=== PATIENT | male | born 1980 | race Two or more races ===

== ENCOUNTER 2018-01-26 11:51 | Emergency (ER) | payer SELFPAY ==
--- NOTE | 2018-01-26 12:38 | ER Document Report ---
ED Medical Screen (RME) - General Chief Complaint: Near Syncope Stated Complaint: DIZZINESS Time Seen by Provider: 01/26/18 12:30 Notes: RAPID MEDICAL EVALUATION DISCLOSURE I have seen this patient as part of a Rapid Medical Evaluation and, if applicable, placed any initially appropriate orders. The patient will be seen and fully evaluated, including a full history and physical exam, by a provider ( in Main ED or Fast Track) when a room becomes available. 38-year-old male here with complaints of lightheadedness ongoing for the past 6 days ever since he sold his plasma. Several hours after donating plasma, he had 2 episodes of vomiting and syncope but none since then however he has had lightheadedness daily. The vomiting has resolved however he is now having some looser than normal stools but not watery. He has been eating and drinking per usual. He has sold his plasma in the past several times however this is the first time he has had the symptoms. He believes they took off the same amount of plasma that the normally take. EXAM CTAB RRR TRAVEL OUTSIDE OF THE [place] IN LAST 30 DAYS: No - Related Data Allergies/Adverse Reactions: No Known Allergies Allergy (Verified 01/12/15 15:18) Past Medical History - Immunizations Immunizations up to date: No Hx Diphtheria, Pertussis, Tetanus Vaccination: Yes Physical Exam - Vital signs Vitals: Temp Pulse Resp BP Pulse Ox 98.7 F 69 18 142/82 H 98 01/26/18 11:55 01/26/18 11:55 01/26/18 11:55 01/26/18 11:55 01/26/18 11:55 Course - Vital Signs Vital signs: Temp Pulse Resp BP Pulse Ox 98.7 F 69 18 142/82 H 98 01/26/18 11:55 01/26/18 11:55 01/26/18 11:55 01/26/18 11:55 01/26/18 11:55
[2018-01-26 13:25] LABS: ABSOLUTE EOSINOPHILS # (AUTO) 0.3 10^3/uL (0.0-0.6); ABSOLUTE LYMPHOCYTES (AUTO) 2.3 10^3/uL (0.5-4.7); ABSOLUTE MONOCYTES (AUTO) 0.5 10^3/uL (0.1-1.4); ABSOLUTE NEUT (AUTO) 4.5 10^3/uL (1.7-8.2); BASOPHILS % (AUTO) 0.6 % (0-2); EOSINOPHILS % (AUTO) 3.8 % (0-6); HEMOGLOBIN 16.5 g/dL (13.5-17.0); LYMPHOCYTES % (AUTO) 29.9 % (13-45); MEAN CORPUSCULAR HEMOGLOBIN 31.5 pg (27.0-33.4); MEAN CORPUSCULAR HGB CONC 34.3 g/dL (32.0-36.0); MEAN CORPUSCULAR VOLUME 92 fl (80-97); PLATELET COUNT 278 10^3/uL (150-450); RED BLOOD COUNT 5.22 10^6/uL (4.35-5.55); RED CELL DISTRIBUTION WIDTH 14.2 % (11.5-14.0); SEGMENTED NEUTROPHILS % (AUTO) 59.7 % (42-78); TOTAL CELLS COUNTED % (AUTO) 100 %; WHITE BLOOD COUNT 7.6 10^3/uL (4.0-10.5)
[2018-01-26 13:49] LABS: ANION GAP 11 (5-19); BLOOD UREA NITROGEN 16 mg/dL (7-20); CALCIUM 9.7 mg/dL (8.4-10.2); CARBON DIOXIDE 28 mmol/L (22-30); CHLORIDE 104 mmol/L (98-107); GLUCOSE 86 mg/dL (75-110); PHOSPHORUS 4.4 mg/dL (2.5-4.5); POTASSIUM 4.7 mmol/L (3.6-5.0)
--- NOTE | 2018-01-26 13:54 | ER Document Report ---
ED Syncope and Near Syncope - General Mode of Arrival: Ambulatory Information source: Patient TRAVEL OUTSIDE OF THE [place] IN LAST 30 DAYS: No <REYNALDO ROYAL - Last Filed: 01/26/18 15:03> <ALEX CRABTREE - Last Filed: 01/26/18 15:26> - General Chief Complaint: Near Syncope Stated Complaint: DIZZINESS Time Seen by Provider: 01/26/18 12:30 Notes: 38-year-old male that presents to the emergency department today with complaints of feeling lightheaded, near syncope, with associated nausea since donating plasma 6 days ago. Patient states that about 2 hours after donating plasma he felt like he was going to have a syncopal event but never did. Patient states he has intermittently been having these symptoms since then and they last for approximately 30 minutes. (REYNALDO ROYAL) - Related Data Allergies/Adverse Reactions: No Known Allergies Allergy (Verified 01/12/15 15:18) Past Medical History - General Information source: Patient - Social History Smoking Status: Current Every Day Smoker Cigarette use (# per day): Yes Frequency of alcohol use: None Drug Abuse: Marijuana Lives with: Family Family History: Reviewed & Not Pertinent Patient has suicidal ideation: No Patient has homicidal ideation: No - Medical History Medical History: Negative Surgical Hx: Negative - Immunizations Immunizations up to date: No Hx Diphtheria, Pertussis, Tetanus Vaccination: Yes <REYNALDO ROYAL - Last Filed: 01/26/18 15:03> Review of Systems - Review of Systems Constitutional: No symptoms reported EENT: See HPI, Other - pressure behind the eyes Cardiovascular: See HPI, Lightheaded, Other - near syncope Respiratory: No symptoms reported Gastrointestinal: See HPI, Nausea. denies: Vomiting Genitourinary: No symptoms reported Male Genitourinary: No symptoms reported Musculoskeletal: No symptoms reported Skin: No symptoms reported Hematologic/Lymphatic: No symptoms reported Neurological/Psychological: No symptoms reported -: Yes All other systems reviewed and negative <REYNALDO ROYAL - Last Filed: 01/26/18 15:03> Physical Exam <REYNALDO ROYAL - Last Filed: 01/26/18 15:03> <ALEX CRABTREE - Last Filed: 01/26/18 15:26> - Vital signs Vitals: Temp Pulse Resp BP Pulse Ox 98.7 F 69 18 142/82 H 98 01/26/18 11:55 01/26/18 11:55 01/26/18 11:55 01/26/18 11:55 01/26/18 11:55 - Notes Notes: Physical Exam: General: Alert, appears well. HEENT: Normocephalic. Atraumatic. PERRL. Extraocular movements intact. Oropharynx clear. Lateral gaze nystagmus. Neck: Supple. Non-tender. Respiratory: No respiratory distress. Clear and equal breath sounds bilaterally. Cardiovascular: Regular rate and rhythm. Abdominal: Normal Inspection. Non-tender. No distension. Normal Bowel Sounds. Back: Non-tender. No deformity or step off. Extremities: Moves all four extremities. Upper extremities: Normal inspection. Normal ROM. Lower extremities: Normal inspection. No edema. Normal ROM. Neurological: Normal cognition. AAOx4. Normal speech. Psychological: Normal affect. Normal Mood. Skin: Warm. Dry. Normal color. (REYNALDO ROYAL) Course - Laboratory Result Diagrams: 01/26/18 12:50 01/26/18 12:50 <REYNALDO ROYAL - Last Filed: 01/26/18 15:03> - Laboratory Result Diagrams: 01/26/18 12:50 01/26/18 12:50 <ALEX CRABTREE - Last Filed: 01/26/18 15:26> - Re-evaluation Re-evalutation: 01/26/18 15:21 On reevaluation after the meclizine, the lateral gaze nystagmus is now gone. Had patient sit up and look about rapidly and he was asymptomatic. (ALEX CRABTREE) - Vital Signs Vital signs: Temp Pulse Resp BP Pulse Ox 98.7 F 69 18 122/62 100 01/26/18 11:55 01/26/18 11:55 01/26/18 13:17 01/26/18 13:17 01/26/18 13:17 - Laboratory Laboratory results interpreted by me: 01/26/18 12:50 RDW 14.2 H Discharge <REYNALDO ROYAL - Last Filed: 01/26/18 15:03> <ALEX CRABTREE - Last Filed: 01/26/18 15:26> - Discharge Clinical Impression: Vertigo, Viral syndrome Condition: Stable Disposition: HOME, SELF-CARE Additional Instructions: Viral Syndrome: The physician has diagnosed a viral infection. Viruses not only cause "colds," but can cause many different symptoms including generalized aching, fever, headache, cough, diarrhea, nausea, vomiting, dizziness and fatigue. The treatment, for the most part, is simply relief of symptoms. This means that antibiotics are usually not given. Rest, fluids, pain medications and, occasionally, medication for the specific symptoms that are most bothersome will be prescribed. Use good handwashing to avoid passing the virus to others. Shared toys should be cleaned with disinfectant. Clean the toilets, sinks, and counter surfaces in bathrooms. Launder clothing in hot water. Contact the physician if you develop any new or unusual symptoms such as severe headache, stiff neck, high fever, chest pain, productive cough, or shortness of breath. You should be rechecked if you don't see marked improvement within seven to 10 days. Vertigo: You seem to be experiencing episodes of vertigo -- a whirling dizziness which may be accompanied by nausea and vomiting or staggering. Vertigo is often caused by an irritation of the inner ear, in which case it is called labyrinthitis. It can also be a symptom of a degenerating inner ear, nerve damage, or brain injury. Your physician has evaluated you to determine whether any further testing is necessary. Vertigo is often treated with dramamine or meclizine. These medications are helpful, but stronger medication may be needed if you are vomiting. Rest in bed. You should not drive or operate machinery until completely better. It may take one to three weeks for recovery. If there are new symptoms, such as decreased hearing or vision, severe headache, weakness or faintness, or confusion, call the physician. Take the medications as prescribed for the dizziness. Drink plenty of fluids. Get plenty of rest. Follow-up with a local medical doctor if not improving. RETURN TO THE EMERGENCY ROOM IF ANY NEW OR WORSENING SYMPTOMS. Prescriptions: Meclizine HCl [Antivert 25 mg Tablet] 25 mg PO TID PRN #30 tablet PRN Reason: Forms: Return to Work Scribe Attestation: 01/26/18 14:22 I personally performed the services described in the documentation, reviewed and edited the documentation which was dictated to the scribe in my presence, and it accurately records my words and actions. (ALEX CRABTREE) Scribe Documentation - Scribe Written by Kbe:: David Olmos, 01/26/2018 [id number] acting as scribe for :: [place] <REYNALDO ROYAL - Last Filed: 01/26/18 15:03>
[2018-01-26 14:00] LABS: APPEARANCE,URINE CLEAR; BILIRUBIN,URINE NEGATIVE (NEGATIVE); COLOR,URINE YELLOW; GLUCOSE, URINE NEGATIVE (NEGATIVE); KETONES,URINE NEGATIVE (NEGATIVE); LEUKOCYTE ESTERASE,URINE NEGATIVE (NEGATIVE); NITRITE,URINE NEGATIVE (NEGATIVE); PROTEIN,URINE NEGATIVE (NEGATIVE); UROBILINOGEN,URINE NEGATIVE mg/dL (<2.0)
[2018-01-26] MEDS ORDERED: MECLIZINE HCL 25 MG TABLET PO ONE (14:00)
[2018-01-26 15:35] VITALS: BP 127/89
[2018-01-26 15:35] LABS: CREATINE KINASE 77 U/L (55-170)
== END 2018-01-26 15:33 | disposition home or self-care (01) ==
LOC: ER 11:51
DX: R42 Dizziness and giddiness (principal); B34.9 Viral infection, unspecified; R55 Syncope and collapse; R11.0 Nausea; F17.210 Nicotine dependence, cigarettes, uncomplicated
CPT/HCPCS: 36415; 80048; 81001; 82550; 83735; 84100; 84443; 85025; 99284

== ENCOUNTER 2020-03-27 09:41 | Emergency (ER) | payer SELFPAY ==
--- NOTE | 2020-03-27 10:27 | ER Document Report ---
ED Medical Screen (RME) - General Chief Complaint: Headache Stated Complaint: HEADACHE,RIGHT BREAST SWELLING Time Seen by Provider: 03/27/20 10:15 TRAVEL OUTSIDE OF THE [place] IN LAST 30 DAYS: No - HPI Notes: 03/27/20 10:24 40-year-old male presents to the emergency room for complaints of right nipple swelling irritation, he is unsure if he is having any discharge from the nipple because he sweats a lot but this drainage is only from the right nipple for the last month. No history of breast cancer. 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 Reports he has these episodic headaches 3-4 times a year, states that the headache does wake him up, feels like he does have some sinus congestion. No [id number] medications have been tried, denies worst headache of life, currently is not having a headache. Denies any fevers or chills, no chest pain or shortness of breath. I have greeted and performed a rapid initial assessment of this patient. A comprehensive ED assessment and evaluation of the patient, analysis of test results and completion of the medical decision making process will be conducted by additional ED providers. PHYSICAL EXAMINATION: GENERAL: Well-appearing, well-nourished and in no acute distress. HEAD: Atraumatic, normocephalic. EYES: Pupils equal round extraocular movements intact, conjunctiva are normal. ENT: Bilateral serous effusions of tympanic membrane bilaterally, intact. No erythema of TM NECK: Normal range of motion CV: s1, s2 regular LUNGS: No respiratory distress. Right areola does appear to be larger than the left areola, no noted discharge bilaterally Musculoskeletal: Normal range of motion NEUROLOGICAL: Normal speech, normal gait. SKIN: Warm, Dry, normal turgor, no rashes or lesions noted. - Related Data Allergies/Adverse Reactions: No Known Allergies Allergy (Verified 03/27/20 10:06) Past Medical History - Social History Chew tobacco use (# tins/day): No Frequency of alcohol use: Occasional Drug Abuse: Marijuana Renal/ Medical History: Denies: Hx Peritoneal Dialysis - Immunizations Immunizations up to date: No Hx Diphtheria, Pertussis, Tetanus Vaccination: Yes Physical Exam - Vital signs Vitals: Temp 98.6 F 03/27/20 10:06 Course - Vital Signs Vital signs: Temp Pulse Resp BP Pulse Ox 98.6 F 03/27/20 10:06
--- NOTE | 2020-03-27 10:57 | RADIOLOGY REPORT (SQ) ---
EXAM DESCRIPTION: PARANASAL SINUSES IMAGES COMPLETED DATE/TIME: 03/27/2020 10:35 am REASON FOR STUDY: L frontal CONNER, intermittent pain, seasonal COMPARISON: None. NUMBER OF VIEWS: Three views. TECHNIQUE: Images of the paranasal sinuses acquired. LIMITATIONS: None. FINDINGS: ORBITS: No fracture. No foreign body. SINUSES: No mucosal thickening. No air fluid levels. FACIAL BONES: No fracture. OTHER: No other significant finding. IMPRESSION: No evidence of acute sinusitis. TECHNICAL DOCUMENTATION: JOB ID: [id number] 2010 [employer]- All Rights Reserved Reading location - IP/workstation name: [email or web address] PROJECT MANAGER-[facility]-
--- NOTE | 2020-03-27 12:23 | ER Document Report ---
ED General - General Chief Complaint: Headache Stated Complaint: HEADACHE,RIGHT BREAST SWELLING Time Seen by Provider: 03/27/20 10:15 Notes: 40-year-old male past medical history of migraines presenting today with intermittent daily headaches for approximately 1 week. He states that this happens every year around the same timeframe. He does not notice any prodromal symptoms. States once his headache occurs it is on the left quaker. Feels like it is behind his eye. He has associated lacrimation and runny nose with this. Pain is mild. Does not wrap around his head. He has no headaches or neck tenderness. He does not take any medications for his symptoms. States the headaches typically last for 1 to 2 minutes or 30 minutes but they do resolve on their own. He denies any nausea or vomiting with this. No vision changes, no photophobia no phonophobia. Denies any dizziness or weakness. For the last month he is also noted he has had right nipple swelling and tenderness after working. He works at [employer] and notices when he sweats excessively the right nipple becomes tender and irritated. He denies any erythema, no discharge. No history of breast cancer. No pain. The swelling and irritation eventually does eventually resolve within 24 hours but does recur if he returns to work. He states that the small glands on the nipple become enlarged and irritated. TRAVEL OUTSIDE OF THE [place] IN LAST 30 DAYS: No - Related Data Allergies/Adverse Reactions: No Known Allergies Allergy (Verified 03/27/20 10:06) Past Medical History - Social History Smoking Status: Current Every Day Smoker Chew tobacco use (# tins/day): No Frequency of alcohol use: Occasional Drug Abuse: Marijuana Family History: Reviewed & Not Pertinent Patient has homicidal ideation: No Renal/ Medical History: Denies: Hx Peritoneal Dialysis - Immunizations Immunizations up to date: No Hx Diphtheria, Pertussis, Tetanus Vaccination: Yes Review of Systems - Review of Systems Constitutional: No symptoms reported EENT: No symptoms reported Cardiovascular: No symptoms reported Respiratory: No symptoms reported Gastrointestinal: No symptoms reported Genitourinary: No symptoms reported Male Genitourinary: No symptoms reported Musculoskeletal: No symptoms reported Skin: See HPI Hematologic/Lymphatic: No symptoms reported Neurological/Psychological: See HPI Physical Exam - Vital signs Vitals: Temp Pulse Resp BP Pulse Ox 98.6 F 66 12 155/77 H 99 09/15/20 10:05 03/27/20 10:05 03/27/20 10:05 03/27/20 10:05 03/27/20 10:05 Interpretation: Normal - Notes Notes: Adult General: GENERAL: Alert, interacts well. No acute distress HEAD: Normocephalic, atraumatic EYES: Pupils equal, round and reactive to light. Extraocular movements intact. ENT: Oral mucosa moist, tongue midline. Oropharynx unremarkable. Airway paten t. Nares patent, sinuses nontender, ear canals unremarkable, TMs intact. No Trismus. NECK: Full range of motion. Supple. Trachea midline. No lymphadenopathy. LUNGS: Clear to auscultation bilaterally, no wheezes, rales, or rhonchi. No respiratory distress. Nontender chest wall. HEART: Regular rate and rhythm. No murmurs, rubs or gallops. ABDOMEN: Nondistended. GENITOURINARY: Deferred EXTREMITIES: Moves all 4 extremities spontaneously. BACK: No cervical, thoracic, lumbar midline tenderness. Moves all extremities with full range of motion. NEUROLOGICAL: Alert and oriented x3. Normal speech. Cranial nerves II through XII grossly intact. Strength 5/ 5 in all extremities. PSYCH: Normal affect, normal mood. SKIN: Warm, dry, normal turgor. No rashes or lesions noted. Course - Re-evaluation Re-evalutation: 03/27/20 12:28 Patient with daily intermittent headaches x1 week. He states that this occurs yearly at the same time. They do resolve on their own. Patient presents with no neurological deficits. He has no headache, no neck pain. Is not taking Tylenol or ibuprofen routinely to help with his symptoms. He does have a history of migraines as a child. As patient has no neurological deficits and these are no different than his other migraines I do not suspect he has any intracranial abscess or lesions. He also has no trauma so I do not suspect brain bleed. He feels that they are sinus related as when they do occur on the left temporal he also has some tenderness in his sinuses. I recommend that the patient take naproxen when he does have a headache. He is currently not having any headaches. Also recommend that he tries Claritin as this may be triggered by allergies. I was notified by the nurse that radiology said that for the symptoms are reported for his right nipple they recommend an MRI on an outpatient basis. I did discuss this with the patient. I suspect that he has some blockage of the shah glands due to his excessive sweating while at work. I did discuss this with the patient. He is agreeable to having imaging performed on an outpatient basis to evaluate for any underlying masses. Patient does not have a primary care provider. I discussed with him the importance of establishing care. He may follow up in the emergency department for worsening symptoms or the development of new symptoms. - Vital Signs Vital signs: Temp Pulse Resp BP Pulse Ox 98.6 F 88 14 135/68 H 99 03/27/20 10:06 03/27/20 13:03 03/27/20 13:03 03/27/20 13:03 03/27/20 13:03 Discharge - Discharge Clinical Impression: Breast swelling Headache Qualifiers: Headache type: unspecified Headache chronicity pattern: chronic headache Condition: Stable Disposition: HOME, SELF-CARE Instructions: Headache ([facility]) Additional Instructions: Your physical exam is unremarkable at this time. I recommend that you take naproxen for your headaches. I also recommend trying Claritin to help alleviate any sinus issues that could be causing her symptoms. If you have worsening symptoms please return the emergency department. I also recommend you establish care with a primary care provider. In regards to your breast swelling, it is recommended that you have an outpatient MRI performed for this. This has been ordered for you. Please return to the emergency department for worsening symptoms or development of new symptoms. Forms: Follow-Up Radiology Testing, Return to Work
[2020-03-27 13:07] VITALS: BP 135/68
== END 2020-03-27 13:03 | disposition home or self-care (01) ==
LOC: ER 09:41
DX: N64.59 Other signs and symptoms in breast (principal); R51 Headache; F17.200 Nicotine dependence, unspecified, uncomplicated
CPT/HCPCS: 70220; 99283

== ENCOUNTER 2020-04-09 18:18 | Emergency (ER) | payer SELFPAY ==
[2020-04-09 18:36] VITALS: BP 131/79
[2020-04-09] MEDS ORDERED: KETOROLAC TROMETHAMINE 60 MG/2 ML SDV IM ONE (19:05)
--- NOTE | 2020-04-09 19:07 | ER Document Report ---
HPI - HPI Patient complains to provider of: headache Time Seen by Provider: 04/09/20 18:50 Pain Level: 1 Notes: 40-year-old male to the emergency department with complaints of left-sided headache behind the eyes that has been going on for the past week. He states that he gets this seasonally for a few weeks each year., And allergies go away. He states his been using [id number] medicines without any relief. He was seen about a week ago for the same and placed on Claritin. He states that helped his pain somewhat but not completely. Denies any photophobia. He states when his headache comes on he does have tearing and runny nose. These are not the worst headaches of his life. He does not have any fever, chills, neck pain. - ROS Systems Reviewed and Negative: No All other systems reviewed and negative - CONSTITUTIONAL Constitutional: DENIES: Fever, Chills - EENT EENT: DENIES: Sore Throat, Ear Pain, Congestion - NEURO Neurology: REPORTS: Headache - CARDIOVASCULAR Cardiovascular: DENIES: Chest pain - RESPIRATORY Respiratory: DENIES: Trouble Breathing, Coughing - GASTROINTESTINAL Gastrointestinal: DENIES: Abdominal Pain, Nausea, Patient vomiting, Diarrhea - MUSCULOSKELETAL Musculoskeletal: DENIES: Extremity pain, Back Pain, Neck Pain - DERM Skin Color: Normal Skin Problems: None Past Medical History - General Information source: Patient - Social History Smoking Status: Current Some Day Smoker Frequency of alcohol use: None Drug Abuse: None Family History: Reviewed & Not Pertinent Patient has homicidal ideation: No Renal/ Medical History: Denies: Hx Peritoneal Dialysis - Immunizations Immunizations up to date: No Hx Diphtheria, Pertussis, Tetanus Vaccination: Yes Vertical Provider Document - CONSTITUTIONAL Agree With Documented VS: Yes Exam Limitations: No Limitations General Appearance: WD/WN, No Apparent Distress - INFECTION CONTROL TRAVEL OUTSIDE OF THE [place] IN LAST 30 DAYS: No - HEENT HEENT: Atraumatic, Conjuctival Injection, Normocephalic, PERRLA Notes: TMs clear bilaterally. No tenderness to palpation of the sinuses. Airway is grossly patent. There is no pharyngeal erythema or exudate - NECK Neck: Normal Inspection, Supple. negative: Lymphadenopathy-Left, Lymphadenopathy-Right - RESPIRATORY Respiratory: Breath Sounds Normal, No Respiratory Distress. negative: Rales, Rhonchi, Wheezing - CARDIOVASCULAR Cardiovascular: Regular Rate, Regular Rhythm, No Murmur - GI/ABDOMEN Gastrointestinal: Abdomen Soft, Abdomen Non-Tender - BACK Back: Normal Inspection. negative: CVA Tenderness-Right, CVA Tenderness-Left - MUSCULOSKELETAL/EXTREMETIES Musculoskeletal/Extremeties: ROSENDO COLÓN - NEURO Level of Consciousness: Awake, Alert Motor/Sensory: No Motor Deficit, No Sensory Deficit, No Pronator Drift. negative: Weak Motor Strength RUE, Weak Motor Strength LUE, Weak Motor Strength RLE, Weak Motor Strength LLE Notes: No nystagmus. Cranial nerves II through XII intact. No facial droop. No dysarthria. PERRLA - DERM Integumentary: Warm, Dry Course - Re-evaluation Re-evalutation: Impression headache. This may be seasonal with allergies involved. Will start on a Solu-Medrol Dosepak and sent home with NSAIDs. Will have him follow-up with neurologist since it is been going on for some time and happens to him every season. He does not have the worst headache of his life. Doubt infectious etiology or SAH. Encourage patient to return if any worsening symptoms. He agrees with the plan. - Vital Signs Vital signs: Temp Pulse Resp BP Pulse Ox 98.2 F 65 20 131/79 H 98 04/09/20 18:35 04/09/20 18:35 04/09/20 18:35 04/09/20 18:35 04/09/20 18:35 Discharge - Discharge Clinical Impression: Recurrent headache Condition: Stable Disposition: HOME, SELF-CARE Instructions: Headache ([facility]), Toradol Injection ([facility]) Additional Instructions: follow up with neurologist for your headaches. return if worse -- if intractable pain, fevers, neck pain, passing out, chest pain. Prescriptions: Ketorolac Tromethamine [Toradol 10 mg Tablet] 10 mg PO Q8HP PRN #12 tablet PRN Reason: Methylprednisolone [Medrol Dosepack (4 mg/Tab) 21 Tab/Dosepak] 4 mg PO ASDIR PRN #21 tab.ds.pk PRN Reason: Forms: Return to Work Referrals: SHADE GARCIA MD [EMERITUS] - Follow up in 1 week
== END 2020-04-09 19:40 | disposition home or self-care (01) ==
LOC: ER 18:18
DX: R51 Headache (principal); F17.200 Nicotine dependence, unspecified, uncomplicated
CPT/HCPCS: 99284; 96372; J1885

== ENCOUNTER 2020-04-26 17:59 | Emergency (ER) | payer SELFPAY ==
[2020-04-26 18:16] VITALS: BP 135/85
--- NOTE | 2020-04-26 19:46 | ER Document Report ---
ED Medical Screen (RME) - General Chief Complaint: Headache Stated Complaint: HEADACHE, EAR ISSUE Time Seen by Provider: 04/26/20 19:35 TRAVEL OUTSIDE OF THE [place] IN LAST 30 DAYS: No - HPI Notes: 04/26/20 19:45 40-year-old male to the emergency department with complaints of persistent left- sided headache that occurs every day for 2 separate episodes. Typically last about an hour. The patient does have some tearing and runny nose with it. He states the pain is very intense is through the back of his left eye and in the base of his neck. Initially he thought it was allergies because he has a hist ory of getting these headaches every time this year. However they are not usually this poorly controlled. He has been seen several times in the emergency department and written for allergy medicine as well as some steroids. He states the steroids did help for short period of time but after completing the Dosepak he had his headaches return almost immediately. Today was the first day that he could come out of his house because of his headaches being so severe. Does admit to nausea with them. Admits to photophobia with them. He states currently he is without headache but he is very concerned about his symptoms. I performed a brief medical screening exam on the patient determined that the patient needs further evaluation and management by main side provider. I have placed initial orders to help expedite care. - Related Data Allergies/Adverse Reactions: No Known Allergies Allergy (Verified 04/26/20 19:35) Past Medical History Renal/ Medical History: Denies: Hx Peritoneal Dialysis - Immunizations Immunizations up to date: No Hx Diphtheria, Pertussis, Tetanus Vaccination: Yes Physical Exam - Vital signs Vitals: Temp Pulse Resp BP Pulse Ox 99.2 F 86 16 135/85 H 99 04/26/20 18:14 04/26/20 18:14 04/26/20 18:14 04/26/20 18:14 04/26/20 18:14 Course - Vital Signs Vital signs: Temp Pulse Resp BP Pulse Ox 99.2 F 86 16 135/85 H 99 04/26/20 18:14 04/26/20 18:14 04/26/20 18:14 04/26/20 18:14 04/26/20 18:14
[2020-04-26 20:19] LABS: ABSOLUTE BASOPHILS # (AUTO) 0.1 10^3/uL (0.0-0.2); ABSOLUTE EOSINOPHILS # (AUTO) 0.4 10^3/uL (0.0-0.6); ABSOLUTE LYMPHOCYTES (AUTO) 3.3 10^3/uL (0.5-4.7); ABSOLUTE MONOCYTES (AUTO) 0.9 10^3/uL (0.1-1.4); ABSOLUTE NEUT (AUTO) 6.7 10^3/uL (1.7-8.2); BASOPHILS % (AUTO) 0.7 % (0-2); EOSINOPHILS % (AUTO) 3.7 % (0-6); HEMATOCRIT 46.9 % (37.9-51.0); HEMOGLOBIN 16.2 g/dL (13.5-17.0); LYMPHOCYTES % (AUTO) 28.9 % (13-45); MEAN CORPUSCULAR HGB CONC 34.4 g/dL (32.0-36.0); MEAN CORPUSCULAR VOLUME 93 fl (80-97); PLATELET COUNT 266 10^3/uL (150-450); RED BLOOD COUNT 5.04 10^6/uL (4.35-5.55); RED CELL DISTRIBUTION WIDTH 14.3 % (11.5-14.0); SEGMENTED NEUTROPHILS % (AUTO) 58.7 % (42-78); TOTAL CELLS COUNTED % (AUTO) 100 %; WHITE BLOOD COUNT 11.5 10^3/uL (4.0-10.5)
--- NOTE | 2020-04-26 20:32 | RADIOLOGY REPORT (SQ) ---
EXAM DESCRIPTION: [facility]: CT HEAD WITHOUT IV CONTRAST CLINICAL HISTORY: 40 years Male; headache; TECHNIQUE: Noncontrast CT head. All CT scans at this facility use dose modulation, iterative reconstruction, and/or weight based dosing when appropriate to reduce radiation dose to as low as reasonably achievable. COMPARISON: 12/21/2015 FINDINGS: Shrestha matter, white matter, ventricles, and cisterns are within normal limits. No acute hemorrhage or mass effect. Incidental bilateral globus pallidus calcification is noted. Mild mucosal thickening in both maxillary sinuses. No sinus air-fluid levels. No mastoid effusion. Visualized portions of the calvarium are within normal limits. IMPRESSION: 1. No acute intracranial findings.
[2020-04-26 20:42] LABS: ALBUMIN 4.6 g/dL (3.5-5.0); ALKALINE PHOSPHATASE 71 U/L (38-126); ANION GAP 8 (5-19); ASPARTATE AMINO TRANSFERASE 26 U/L (17-59); BILIRUBIN,DIRECT 0.3 mg/dL (0.0-0.4); BILIRUBIN,TOTAL 0.5 mg/dL (0.2-1.3); BLOOD UREA NITROGEN 21 mg/dL (7-20); CALCIUM 9.8 mg/dL (8.4-10.2); CARBON DIOXIDE 26 mmol/L (22-30); CHLORIDE 105 mmol/L (98-107); GLUCOSE 76 mg/dL (75-110); POTASSIUM 4.9 mmol/L (3.6-5.0); TOTAL PROTEIN 7.6 g/dL (6.3-8.2)
--- NOTE | 2020-04-26 22:20 | ER Document Report ---
ED Headache - General Chief Complaint: Headache Stated Complaint: HEADACHE, EAR ISSUE Time Seen by Provider: 04/26/20 19:35 Primary Care Provider: [facility] [Provider Group] - Follow up in 3-5 days TRAVEL OUTSIDE OF THE [place] IN LAST 30 DAYS: No - HPI Notes: 40-year-old male to the emergency department with complaints of persistent left- sided headache that occurs every day for 2 separate episodes. Typically last about an hour. The patient does have some tearing and runny nose with it. He states the pain is very intense is through the back of his left eye and in the base of his neck. Initially he thought it was allergies because he has a history of getting these headaches every time this year. However they are not usually this poorly controlled. He has been seen several times in the emergency department and written for allergy medicine as well as some steroids. He states the steroids did help for short period of time but after completing the Dosepak he had his headaches return almost immediately. Today was the first day that he could come out of his house because of his headaches being so severe. Does admit to nausea with them. Admits to photophobia with them. He states currently he is without headache but he is very concerned about his symptoms. Patient denies current headache - Related Data Allergies/Adverse Reactions: No Known Allergies Allergy (Verified 04/26/20 19:35) Past Medical History - General Information source: Patient - Social History Smoking Status: Current Every Day Smoker Family History: Reviewed & Not Pertinent Renal/ Medical History: Denies: Hx Peritoneal Dialysis - Immunizations Immunizations up to date: No Hx Diphtheria, Pertussis, Tetanus Vaccination: Yes Review of Systems - Review of Systems Constitutional: denies: Chills, Fever EENT: Tearing, Other - Rhinorrhea with headache Cardiovascular: denies: Chest pain, Palpitations, Dyspnea, Dizziness, Lightheaded Respiratory: denies: Cough, Short of breath Gastrointestinal: denies: Abdominal pain, Diarrhea, Nausea, Vomiting Musculoskeletal: No symptoms reported Skin: No symptoms reported Neurological/Psychological: Headaches. denies: Lost consciousness, Numbness, Tingling -: Yes All other systems reviewed and negative Physical Exam - Vital signs Vitals: Temp Pulse Resp BP Pulse Ox 99.2 F 86 16 135/85 H 99 04/26/20 18:14 04/26/20 18:14 04/26/20 18:14 04/26/20 18:14 04/26/20 18:14 Interpretation: Normal - General General appearance: Appears well, Alert In distress: None - HEENT Head: Normocephalic, Atraumatic Eyes: Normal Pupils: PERRL - Respiratory Respiratory status: No respiratory distress Chest status: Nontender Breath sounds: Normal. No: Rales, Rhonchi, Wheezing Chest palpation: Normal - Cardiovascular Rhythm: Regular Heart sounds: Normal auscultation Murmur: No - Abdominal Inspection: Normal Distension: No distension Bowel sounds: Normal Tenderness: Nontender. No: Tender, McBurney's point, Garcia's sign, Guarding, Rebound Organomegaly: No organomegaly - Back Back: Normal, Nontender - Extremities General upper extremity: Normal inspection, Nontender, Normal color, Normal ROM, Normal temperature General lower extremity: Normal inspection, Nontender, Normal color, Normal ROM, Normal temperature, Normal weight bearing. No: Nuno's sign - Neurological Neuro grossly intact: Yes Cognition: Normal Orientation: AAOx4 Sera Coma Scale Eye Opening: Spontaneous Sera Coma Scale Verbal: Oriented Sera Coma Scale Motor: Obeys Commands [place] Coma Scale Total: 15 Speech: Normal. No: Dysarthria Cranial nerves: Normal. No: Facial palsy, Forehead sparing, Gaze palsy, Sensory deficit, Tongue deviation Cerebellar coordination: Normal. 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 No: Pronator drift, Weakness Sensory: Normal - Psychological Associated symptoms: Normal affect, Normal mood - Skin Skin Temperature: Warm Skin Moisture: Dry Skin Color: Normal Course - Re-evaluation Re-evalutation: Plan: Recurrent episodic headaches. He has lacrimation and rhinorrhea with his headaches. It is always occurring at the same time and always presents the same way. Suspect that this is a cluster headache syndrome for him. The patient has been asking to leave because he has a family emergency and his work-up is not completed. I have talked to him several times about this. He states he will come back in the morning. However I will have him sign out AGAINST MEDICAL ADVICE because he cannot and will not stay for full evaluation. As advised the headaches could get worse and that he could end up needing further more aggressive treatment and hospitalization. I have encouraged him to return at any time. - Vital Signs Vital signs: Temp Pulse Resp BP Pulse Ox 99.2 F 86 16 135/85 H 99 04/26/20 18:14 04/26/20 18:14 04/26/20 18:14 04/26/20 18:14 04/26/20 18:14 - Laboratory Result Diagrams: 04/26/20 20:06 04/26/20 20:06 Laboratory results interpreted by me: 04/26/20 04/26/20 20:06 20:06 WBC 11.5 H RDW 14.3 H BUN 21 H Discharge - Discharge Clinical Impression: Headache Qualifiers: Headache type: unspecified Headache chronicity pattern: acute headache Intractability: not intractable Qualified Code(s): R51.9 - Headache, unspecified Disposition: AGAINST MEDICAL ADVICE Additional Instructions: Follow up with [facility] to establish care. YOu have elected to leave before your work up is complete. Leaving without completion of your evaluation could lead to worsening headaches, further days missed at work, or worsening condition. You may return at any time for further evaluation. Referrals: [facility] [Provider Group] - Follow up in 3-5 days
== END 2020-04-26 22:34 | disposition left against medical advice (07) ==
LOC: ER 17:59
DX: R51.9 Headache, unspecified (principal); J34.89 Other specified disorders of nose and nasal sinuses; H53.149 Visual discomfort, unspecified; F17.200 Nicotine dependence, unspecified, uncomplicated; Z53.29 Procedure and treatment not carried out because of patient's decision for other reasons
CPT/HCPCS: 36415; 70450; 80053; 85025; 99284

== ENCOUNTER 2020-04-27 11:31 | Emergency (ER) | payer SELFPAY ==
[2020-04-27 11:35] VITALS: BP 136/89
[2020-04-27] MEDS ORDERED: IBUPROFEN 800 MG TABLET PO ONE (12:08)
--- NOTE | 2020-04-27 12:19 | ER Document Report ---
ED Headache - General Chief Complaint: Migraine Stated Complaint: HEADACHE Time Seen by Provider: 04/27/20 12:00 Mode of Arrival: Ambulatory Information source: Patient TRAVEL OUTSIDE OF THE [place] IN LAST 30 DAYS: No - Related Data Allergies/Adverse Reactions: No Known Allergies Allergy (Verified 04/26/20 19:35) Past Medical History - Social History Smoking Status: Current Every Day Smoker Frequency of alcohol use: None Drug Abuse: None Family History: Reviewed & Not Pertinent Patient has homicidal ideation: No Renal/ Medical History: Denies: Hx Peritoneal Dialysis - Immunizations Immunizations up to date: No Hx Diphtheria, Pertussis, Tetanus Vaccination: Yes Physical Exam - Vital signs Vitals: Temp Pulse Resp BP Pulse Ox 98.1 F 91 14 136/89 H 97 04/27/20 11:35 04/27/20 11:35 04/27/20 11:35 04/27/20 11:35 04/27/20 11:35 Course - Vital Signs Vital signs: Temp Pulse Resp BP Pulse Ox 98.1 F 91 14 136/89 H 97 04/27/20 11:46 04/27/20 11:35 04/27/20 11:35 04/27/20 11:35 04/27/20 11:35 Discharge - Discharge Clinical Impression: Headache Qualifiers: Headache type: unspecified Headache chronicity pattern: acute headache Intractability: not intractable Qualified Code(s): R51.9 - Headache, unspecified Condition: Stable Disposition: HOME, SELF-CARE Additional Instructions: HEADACHE: The physician does not feel that the headache you are experiencing has a serious underlying cause. Most headaches are due to emotional stress, with resultant muscle tension (tension headache). Occasionally, headaches are secondary to changes in the blood vessels of the scalp (vascular headache and migraine headache). Sometimes, a headache is the first symptom of another developing illness, such as a viral infection. You have no evidence of stroke, bleeding, meningitis, or other serious cause of your headache. The treatment of headaches varies with the severity and cause of the pain. Not all headaches need pain shots. In fact, there is evidence that using narcotics for headaches may make them worse in the long run. The physician will determine the therapy that's in your best interest. If you develop a fever, if the headache is different from any you've previously experienced, or if the headache progressively worsens, then call your physician at once or go to the emergency room. Calcium Channel Blockers A medication of the calcium channel luisa type has been prescribed for you. Examples of this type of medicine are Calan, Isoptin, Procardia, and Cardizem. These medicines have a variety of uses, including prevention of angina attacks, treatment of blood pressure, regulation of certain heart rhythm prob lems, and prevention of migraine headaches. Calcium channel blockers work by interfering with the flow of calcium in cell membranes. This results in dilation of blood vessels, and slowing of bacilio ctrical conduction in the heart. A slight dizziness (due to a fall in blood pressure) may occur with the first dose, and sometimes even with later doses. This may make you prone to dizziness if you stand up suddenly. Call the doctor if lightheadedness is severe, or if you develop palpitations, shortness of breath, or any other new or alarming symptoms. USE OF DIPHENHYDRAMINE: Diphenhydramine (Benadryl) is an antihistamine and has been recommended to help treat your headache and to prevent side effects of other medications used to treat headaches. The medication can be repeated four times daily. Age Elixir (12.5 mg/tsp) 25 mg pill adult 1-2 tabs Antihistamines may cause drowsiness, especially with the first dose. Do not operate machinery or drive while under the effects of the medication. Do not combine the medication with alcohol, or with any other medication without talking to your doctor. COMPAZINE FOR HEADACHE: You have received therapy for headaches, using intravenous Compazine. This treatment is dramatically successful in relieving the headache in about 50 percent of cases. When it works, it provides a rapid method of eliminating the headache without resorting to narcotics (and the problems associated with them). Most patients still feel fully alert after the Compazine, but others may be slightly drowsy. It's best not to drive or work with machinery for six to eight hours. Do not take alcohol or other medication unless you discuss it with the doctor. If you develop tightness and spasms in your muscles, especially the neck and tongue, you should return. This is a side effect which can be treated. Ibuprofen Ibuprofen is an excellent, safe drug for pain control. In addition, it has potent antiinflammatory effects which are beneficial, especially in the treatment of injuries, arthritis, or tendonitis. It's best to take ibuprofen with food. Persons with ulcer disease or allergy to aspirin should notify their physician of this before taking ibuprofen. Take the medication exactly as prescribed. Don't take additional doses unless instructed to do so by your doctor. If you develop wheezing, shortness of breath, hives, faintness, stomach pain, vomiting, or dark black stools, return for re-evaluation at once. FOLLOW-UP CARE: If you have been referred to a physician for follow-up care, call the physicians office for an appointment as you were instructed or within the next two days. If you experience worsening or a significant change in your symptoms, notify the physician immediately or return to the Emergency Department at any time for re-evaluation. Prescriptions: Prochlorperazine Maleate [Compazine] 10 mg PO Q6HP PRN #20 tablet PRN Reason: Verapamil HCl 120 mg PO TID #30 tablet Forms: Elevated Blood Pressure, Smoking Cessation Education Referrals: [facility] [Provider Group] - Follow up as needed [facility] [Provider Group] - Follow up as needed [facility] [Provider Group] - Follow up as needed [facility] [Provider Group] - Follow up as needed LASHELL ARRIETA MD [NO LOCAL MD] - Follow up as needed [facility] [Provider Group] - Follow up as needed
== END 2020-04-27 12:26 | disposition home or self-care (01) ==
LOC: ER 11:31
DX: R51.9 Headache, unspecified (principal); F17.200 Nicotine dependence, unspecified, uncomplicated
CPT/HCPCS: 99283